=== PATIENT | female | born 1955 | race Caucasian/White ===

== ENCOUNTER 2018-09-26 20:22 | Emergency (ER) | payer MEDICARE, MEDICAID ==
[~2018-09-26] VITALS: Ht 162.6 cm; Wt 98.0 kg
[2018-09-26 23:02] VITALS: BP 122/80
== END 2018-09-26 23:04 | disposition home or self-care (01) ==
LOC: ED 22:21
DX: R42 Dizziness and giddiness (principal); R06.00 Dyspnea, unspecified; R53.1 Weakness; R10.13 Epigastric pain; R06.02 Shortness of breath; I10 Essential (primary) hypertension; E11.9 Type 2 diabetes mellitus without complications; Z87.891 Personal history of nicotine dependence; Z95.5 Presence of coronary angioplasty implant and graft
CPT/HCPCS: 36415; 71046; 80053; 82962; 83880; 84484; 85025; 93005; 99284